=== PATIENT | female | born 2000 | race Caucasian/White ===

== ENCOUNTER 2024-12-19 21:31 | Emergency (ER) | payer OTHER ==
[2024-12-19 21:43] VITALS: BP 138/93; PULSE 66; RESP 18; TEMP 99; BMI 30.9
[2024-12-19 22:31] LABS: URINE APPEARANCE CLEAR; URINE BILIRUBIN NEGATIVE (NEGATIVE); URINE COLOR YELLOW; URINE GLUCOSE (UA) NEGATIVE (NEGATIVE); URINE KETONE NEGATIVE (NEGATIVE); URINE LEUK ESTERASE NEGATIVE (NEGATIVE); URINE NITRITE NEGATIVE (NEGATIVE); URINE PROTEIN NEGATIVE (NEGATIVE); URINE UROBILINOGEN 0.2 mg/dL (0.2-1.0)
[2024-12-19 22:34] LABS: HCG,QUALITATIVE URINE Negative
[2024-12-19] MEDS ORDERED: MAGNESIUM SULFATE IN WATER 2 GM/50 ML IVPB IVPB ONE (22:34)
[2024-12-19] MEDS ORDERED: LACTULOSE 20 GM/30 ML UDC (FOR ORAL USE ONLY) ONE (22:34)
[2024-12-19] MEDS: LACTULOSE 20 GM/30 ML UDC (FOR ORAL USE ONLY) PO ONE (23:20)
[2024-12-19] MEDS: MAGNESIUM SULF 50% (8.12 MEQ/2 ML-1 GM VIAL) IVPB ONE (23:20)
[2024-12-19] MEDS: SODIUM CHLORIDE 0.9% 500 ML INFUS.BAG IV ONE (23:20)
[2024-12-19 23:21] LABS: BASO % 0.4 % (0-2.0); EOS % 4.9 % (0-4.5); HEMATOCRIT 46.4 % (32.4-45.2); HEMOGLOBIN 15.4 GM/dL (10.7-15.3); MCH 29.2 pg (25.7-33.7); MCHC 33.3 g/dl (32.0-36.0); MEAN CELL VOLUME 87.8 fl (80-96); MEAN PLT VOLUME 7.9 fl (7.5-11.1); MONO % 7.5 % (3.8-10.2); NEUT % 57.2 % (42.8-82.8); PLATELET COUNT 276 10^3/uL (134-434); RBC 5.28 M/mm3 (3.60-5.2)
[2024-12-20 00:13] LABS: CHLORIDE 107 mmol/L (98-107); POTASSIUM 4.4 mmol/L (3.5-5.1); SODIUM 138 mmol/L (136-145)
[2024-12-20 00:15] LABS: BLOOD UREA NITROGEN 21.3 mg/dL (7-18); CALCIUM 9.9 mg/dL (8.5-10.1)
[2024-12-20 00:16] LABS: ALBUMIN 4.3 g/dl (3.4-5.0); ANION GAP 5 mmol/L (4-13); CO2 26 mmol/L (21-32); GLUCOSE,RANDOM 87 mg/dL (74-106)
[2024-12-20 00:19] LABS: CREATININE 0.7 mg/dL (0.55-1.3); SGOT/AST 20 U/L (15-37); SGPT/ALT 33 U/L (13-61)
[2024-12-20 00:20] LABS: BILIRUBIN,TOTAL 0.3 mg/dL (0.2-1); TOT PROT 8.2 g/dl (6.4-8.2)
[2024-12-20 00:22] LABS: ALK PHOS 93 U/L (45-117)
[2024-12-20] MEDS ORDERED: MAGNESIUM CITRATE 300 ML BOTTLE ONE (00:27)
[2024-12-20] MEDS: MAGNESIUM CITRATE 300 ML BOTTLE PO ONE (00:28)
[2024-12-20] MEDS ORDERED: LIDOCAINE HCL 2% JELLY 11 ML TP ONE (00:37)
[2024-12-20] MEDS ORDERED: GLYCERIN 1 RECTAL SUPPOSITORY, PEDIATRIC RC ONE (00:37)
[2024-12-20] MEDS: GLYCERIN 1 RECTAL SUPPOSITORY, ADULT PR ONE (01:04)
== END 2024-12-20 01:10 | disposition home or self-care (01) ==
LOC: JER 21:31
PROC: 3E033GC Introduction of Other Therapeutic Substance into Peripheral Vein, Percutaneous Approach (ICD-10-PCS; principal; 2024-12-19)
DX: K59.00 Constipation, unspecified (principal); R10.32 Left lower quadrant pain
CPT/HCPCS: 36415; 74019-TC-FY; 80053; 81003; 84702; 84703; 85025; 87086; 99284-25

== ENCOUNTER 2025-04-19 12:29 | Day surgery (SDC) | payer OTHER ==
[2025-04-14 12:56] VITALS: BMI 26.4
[2025-04-19 11:21] VITALS: TEMP 98.4
[2025-04-19 12:05] VITALS: PULSE 59
[2025-04-19 12:07] VITALS: BP 110/58; RESP 18
== END 2025-04-19 12:30 | disposition home or self-care (01) ==
LOC: JASU-ENDO 12:29
PROVIDERS: ATTEND Internal Medicine Gastroenterology
PROC: 0DBL8ZX Excision of Transverse Colon, Via Natural or Artificial Opening Endoscopic, Diagnostic (ICD-10-PCS; 2025-04-19)
PROC: 0DBP8ZX Excision of Rectum, Via Natural or Artificial Opening Endoscopic, Diagnostic (ICD-10-PCS; 2025-04-19)
PROC: 0DBF8ZX Excision of Right Large Intestine, Via Natural or Artificial Opening Endoscopic, Diagnostic (ICD-10-PCS; 2025-04-19)
PROC: 0DBH8ZX Excision of Cecum, Via Natural or Artificial Opening Endoscopic, Diagnostic (ICD-10-PCS; principal; 2025-04-19 10:15)
DX: K62.1 Rectal polyp (principal); D12.4 Benign neoplasm of descending colon; D12.3 Benign neoplasm of transverse colon
CPT/HCPCS: 81025; 88305-TC; 88341-TC; 88342-TC